=== PATIENT | female | born 1960 | race American Indian/Alaskan Native ===

== ENCOUNTER 2018-11-06 09:17 | Day surgery (SDC) | payer MEDICARE, OTHER ==
[~2018-11-06] VITALS: Ht 167.6 cm; Wt 51.5 kg
[~2018-11-06 09:17] MED LIST: AMOX500 PO; Aldactone100 MG PO; BUPR150ER PO; FURO40 PO; GABA300 PO; HYDACE5 PO; LOSA50 PO; OMEP20ER PO
== END 2018-11-06 12:05 | disposition home or self-care (01) ==
LOC: ORSCSDS 09:17
PROVIDERS: Internal Medicine Gastroenterology
PROC: 0DB68ZX Excision of Stomach, Via Natural or Artificial Opening Endoscopic, Diagnostic (ICD-10-PCS; principal; 2018-11-06 11:00)
PROC: 0DBM8ZX Excision of Descending Colon, Via Natural or Artificial Opening Endoscopic, Diagnostic (ICD-10-PCS; principal; 2018-11-06 11:00)
PROC: 0DBK8ZX Excision of Ascending Colon, Via Natural or Artificial Opening Endoscopic, Diagnostic (ICD-10-PCS; principal; 2018-11-06 11:00)
PROC: 0DB58ZX Excision of Esophagus, Via Natural or Artificial Opening Endoscopic, Diagnostic (ICD-10-PCS; principal; 2018-11-06 11:00)
DX: Z12.11 Encounter for screening for malignant neoplasm of colon (principal); D12.2 Benign neoplasm of ascending colon; D12.4 Benign neoplasm of descending colon; K74.60 Unspecified cirrhosis of liver; B19.20 Unspecified viral hepatitis C without hepatic coma; I85.10 Secondary esophageal varices without bleeding; K29.70 Gastritis, unspecified, without bleeding; B96.81 Helicobacter pylori [H. pylori] as the cause of diseases classified elsewhere; K76.6 Portal hypertension; K31.89 Other diseases of stomach and duodenum; K57.30 Diverticulosis of large intestine without perforation or abscess without bleeding; K64.8 Other hemorrhoids; F17.210 Nicotine dependence, cigarettes, uncomplicated; I10 Essential (primary) hypertension; Z79.899 Other long term (current) drug therapy
CPT/HCPCS: 88305; 88342; J2704; J7120

== ENCOUNTER → 2019-07-09 | Outpatient (CLI) | payer MEDICARE, OTHER | END | disposition home or self-care (01) | LOC: OLS 13:29 → LAB SHORT 13:29 | DX: K74.60 Unspecified cirrhosis of liver (principal) | CPT/HCPCS: 36415; 82105 ==

== ENCOUNTER 2019-11-22 12:46 | Day surgery (SDC) | payer MEDICARE, OTHER ==
[~2019-11-22] VITALS: Ht 167.6 cm; Wt 54.5 kg
[~2019-11-22 12:46] MED LIST changes: +GABA100 PO
[2019-11-22] MEDS ORDERED: CLOP75 PO (17:22)
--- NOTE | 2019-11-22 18:03 | NUR ---
1700 PATIENT RETURNED TO THE RECOVERY ROOM VIA RECLINER CHAIR WITH RIGHT RADIAL ACCESS. TR BAND IN PLACE WITH 11 ML OF AIR IN THE BAND. ACT AT 1700 WAS 272. WILL RECHECK IN AN HOUR. TRAY SERVED AND PATIENT FEEDING SELF. VVS.
--- NOTE | 2019-11-22 18:05 | NUR ---
1730 PATIENT C/O OF TINGLING TO THE LEFT RADIAL AND 2 ML OF AIR REMOVED FROM THE TR BAND AND BLEEDING NOTED. REPLACED 1 ML OF AIR AND BLEEDING STOPPED.
--- NOTE | 2019-11-22 18:06 | NUR ---
1800 PATIENT C/O HEADACHE AND OBTAINED ORDER FOR TYLENOL FROM DR. CHERRY. 600 MG GIVEN PO TO THE PATIENT.
--- NOTE | 2019-11-22 18:08 | NUR ---
1805 ACT CHECKED FROM A VENOUS DRAW FROM THE [facility]. WASTED 5 ML OF BLOOD AND SAMPLE OBTAINED. ACT 379
--- NOTE | 2019-11-22 18:39 | NUR ---
1835 ACT RECHECKED AFTER SAMPLE OBTAINED FROM THE PIV AND RESULTS ARE 147. 2 ML OF AIR RELEASED FROM THE BAND AND NO BLEEDING NOTED.
--- NOTE | 2019-11-22 18:54 | NUR ---
1850 2 ML OF AIR REMOVED FROM THE TR BAND.
--- NOTE | 2019-11-22 19:10 | NUR ---
1910 THE REMAINDER OF AIR REMOVED FROM THE TR BAND. FLAT, NO AIR REMAINS. NO BLEEDING NOTED.
--- NOTE | 2019-11-22 19:10 | NUR ---
1900 3 ML OF AIR REMOVED FROM THE TR BAND, NO BLEEDING NOTED.
--- NOTE | 2019-11-22 19:48 | NUR ---
1950 TR BAND REMOVED AND SITE CLEANED. CLOTH DOT APPLIED TO THE RIGHT RADIAL SITE. ARM BOARD REAPPLIED AND PATIENT INSTRUCTED ON CARE OF FOLLOW UP APPOINTMENT WITH DR. CHERRY IN 4 WEEKS. REVIEWED ALL DISCHARGE INSTRUCTIONS AND NEW SCRIPT FOR PLAVIX.
--- NOTE | 2019-11-22 19:51 | NUR ---
2000 PATIENT UP AND DRESSED AND ALL BELONGINGS GATHERED. REMINDED PATIENT AND SIGNIFICANT OTHER THAT PLAVIX WAS CALLED INTO THE PHARMACY.
--- NOTE | 2019-11-22 19:54 | NUR ---
2010 PATIENT DISCHARGED BY WHEEL CHAIR TO PRIVATE VEHICLE WITH BOYFRIEND DRIVING.
== END 2019-11-22 22:41 | disposition home or self-care (01) ==
LOC: MHTC 12:46
DX: I70.223 Atherosclerosis of native arteries of extremities with rest pain, bilateral legs (principal)
CPT/HCPCS: 37224; 75716; 75774; 76937; 85347; 99152; 99153; A9270; C1725; C1769; C1887; C1894; J1644; J2250; J3010; J7030; Q9967

== ENCOUNTER 2020-01-14 07:49 | Day surgery (SDC) | payer MEDICARE, OTHER ==
[~2020-01-14] VITALS: Ht 165.1 cm; Wt 55.7 kg
[~2020-01-14 07:49] MED LIST changes: +CLOP75 PO
[2020-01-14] MEDS ORDERED: CLOP75 (08:16)
== END 2020-01-14 09:44 | disposition home or self-care (01) ==
LOC: ORSCSDS 07:49
PROVIDERS: Internal Medicine Gastroenterology
PROC: 0DB68ZX Excision of Stomach, Via Natural or Artificial Opening Endoscopic, Diagnostic (ICD-10-PCS; principal; 2020-01-14 09:15)
DX: K74.60 Unspecified cirrhosis of liver (principal); Z13.810 Encounter for screening for upper gastrointestinal disorder; I85.00 Esophageal varices without bleeding; D37.1 Neoplasm of uncertain behavior of stomach; K44.9 Diaphragmatic hernia without obstruction or gangrene; K76.6 Portal hypertension; K31.89 Other diseases of stomach and duodenum; R00.0 Tachycardia, unspecified; Z86.19 Personal history of other infectious and parasitic diseases; I73.9 Peripheral vascular disease, unspecified; I10 Essential (primary) hypertension; E78.5 Hyperlipidemia, unspecified; F41.9 Anxiety disorder, unspecified; F17.210 Nicotine dependence, cigarettes, uncomplicated; Z79.899 Other long term (current) drug therapy
CPT/HCPCS: 88305; 88342; J2704; J7120

== ENCOUNTER 2020-04-02 08:01 | Day surgery (SDC) | payer MEDICARE, OTHER ==
[~2020-04-02 08:01] MED LIST changes: +CLOP75
== END 2020-04-02 22:37 | disposition home or self-care (01) ==
LOC: MHTC 08:01
DX: I70.213 Atherosclerosis of native arteries of extremities with intermittent claudication, bilateral legs (principal)

== ENCOUNTER 2020-07-09 11:57 | Day surgery (SDC) | payer MEDICARE, OTHER ==
[~2020-07-09] VITALS: Ht 167.6 cm; Wt 54.5 kg
[~2020-07-09 11:57] MED LIST changes: +BUPROPION XL150 M1 PO; +HYDR1TAB94 PO
--- NOTE | 2020-07-09 15:36 | NUR ---
FOLLOWED PT BACK TO RECOVERY ROOM.R PT SITE STILL BLEEDING AFTER 35 MINUTES MANUAL PRESSURE. PRESSURE DRESSING APPLIED, WILL CONTINUE TO MONITOR.
[2020-07-09] MEDS ORDERED: XARELTO2.5 MG PO (15:47)
--- NOTE | 2020-07-09 16:05 | NUR ---
R PEDAL SITE STILL BLEEDING, NEW PRESSURE DRESSING APPLIED. ACT DRAWN PER IV SITE.
--- NOTE | 2020-07-09 17:08 | NUR ---
PRESSURE DRESSING REMOVED TO ASSESS THE PT SITE. GIOVANNI DRESSING INTACT WITH SPOT OF RED BLOOD UNDER THE DRESSING, HOWEVER THERE IS NO ACTIVE BLEEDING OBSERVED.
--- NOTE | 2020-07-09 17:44 | NUR ---
DINNER TRAY SERVED AND SET UP FOR PATIENT. PATIENT FEEDING SELF. VVS. OFF MONITOR. NO PAIN NOTED. CALL LIGHT IN REACH.
--- NOTE | 2020-07-09 17:49 | NUR ---
PATIENT UP TO BATHROOM WITH STAND BY ASSIST. RIGHT DRESSING SITE UNCHANGED. NO BLEEDING OR SWELLING. DRESSED BY SELF. IV SITE DCED WITH CATHETER INTACT.
--- NOTE | 2020-07-09 18:01 | NUR ---
PATIENT DISCHARGED HOME, A&O, DRESSING DRY AND INTACT. IV SITE DCED WITH CATHETER INTACT. TRANSFERRED TO RIDE HOME VIA WHEELCHAIR. SIGNIFICANT OTHER DRIVING.
== END 2020-07-09 22:37 | disposition home or self-care (01) ==
LOC: MHTC 11:57
DX: I70.213 Atherosclerosis of native arteries of extremities with intermittent claudication, bilateral legs (principal); I10 Essential (primary) hypertension; E78.5 Hyperlipidemia, unspecified; M19.90 Unspecified osteoarthritis, unspecified site; F41.9 Anxiety disorder, unspecified; B19.20 Unspecified viral hepatitis C without hepatic coma; M41.9 Scoliosis, unspecified; Z79.01 Long term (current) use of anticoagulants; Z79.02 Long term (current) use of antithrombotics/antiplatelets; Z79.899 Other long term (current) drug therapy
CPT/HCPCS: 37224; 37228; 37232; 75710; 75716; 75774; 76937; 85347; 99152; 99153; C1725; C1757; C1769; C1887; C1894; C2623; C9764; J1644; J2250; J3010; J7030; J7040; J7050; Q9967

== ENCOUNTER 2020-10-15 10:36 | Day surgery (SDC) | payer MEDICARE, OTHER ==
[~2020-10-15] VITALS: Ht 165.1 cm; Wt 58.1 kg
[~2020-10-15 10:36] MED LIST changes: +CO Q10100 MG PO; +PRAVASTATIN SOD10 MG PO; +PREG75 PO; +XARELTO2.5 MG PO
--- NOTE | 2020-10-15 11:22 | NUR ---
5894 PATIENT READY, GROINS PREP COMPLETE, PIV TO THE R AC AND NPO. PATIENT TO THE CHANNELER OUTSOLE FOR PROCEDURE.
--- NOTE | 2020-10-15 11:34 | NUR ---
PATIENT UP TO THE RESTROOM VOIDED, BACK TO BEDSIDE. REVIEWED ALL DISCHARGE INSTRUCTIONS WITH THE PATIENT, ALL QUESTIONS ANSWERED AND PATIENT SIGNED ALL PAPERS. FOLLOW UP APPOINTMENT NOTED AND WRITTEN DOWN FOR THE PATIENT. PIV REMOVED FROM THE RIGHT ARM AND PRESSURE DRESSING APPLIED.
--- NOTE | 2020-10-15 13:27 | NUR ---
PATIENT RETURNED FROM THE CATHLAB. ACCESS SHEATH TO THE RIGHT PT AND INFUSING CATHETER LEFT IN PLACE. SHEATH SITE TO THE LEFT FEMORAL 6 FR SHEATH WITH INFUSION CATHETER LEFT IN PLACE. PLACE IS TO INFUSE TPA AND HEPARIN RESPECTIVELY TO THE INFUSION CATHETERS IN PLACE. PATIENT IS SUPINE AND IN REVERSE TRENDELENBERG. PLACED ON THE MONITOR AND CALL LIGHT IN REACH. SHE IS AWAY AND CALLED TO LET HER S.O. KNOW THE PLAN TO STAY OVERNIGHT. CALL LIGHT IN REACH.
--- NOTE | 2020-10-15 14:16 | NUR ---
LUNCH TRAY SERVED. PATIENT FEEDING SELF. REMAINS IN REVERSE TRENDELENBERG FEET FLOATED ON A PILLOW. SUPINE CALL LIGHT IN REACH AND MONITOR IN PLACE.
--- NOTE | 2020-10-15 14:47 | NUR ---
PATIENT PLACE ON THE BEDPAN TO VOID.
--- NOTE | 2020-10-15 14:47 | NUR ---
1435 TPA GTT TO THE RIGHT PEDAL SHEATH AT 1 MG/HR ORDERED. 1440 HEPARIN GTT TO CATHETER IN THE THE LEFT FEMORAL SHEATH AT 300 UNITS/HR OR 6 ML/HR
--- NOTE | 2020-10-15 14:55 | NUR ---
1448 PATIENT STATES THAT THE RIGHT LEG IS NUMB AND PAINFUL. TINGLING AND STIFF. PATIENT MUST KEEP RIGHT LEG STRAIGHT DUE TO CATHETERS IN THE ARTERIAL VESSEL FROM THE LEFT GROIN TO THE RIGHT FOOT. GIVEN NORCO ORALLY
--- NOTE | 2020-10-15 15:08 | NUR ---
ICU BED OBTAINED. REPORT CALLED.
--- NOTE | 2020-10-15 15:30 | NUR ---
Patient arrived from semiconductor lab technician, awake and alert an oriented. Jamar has NS free drip into 20ga IV in RAC. She has sheat at ppost tibial site with TPA at 1 mg/hr, conner also has left groin site WNL's and is infusing heparin at 6ml/hr. Hr in the 60's and systolic 120-140's. She is supine and states 9/10 pain. She will return to cvath lab 10/16. She states unable to move foot or toes and pedal pulse 2+ and palpable left pedal pulse.
--- NOTE | 2020-10-15 17:30 | NUR ---
She has been medicated twice as [place] ceci not work and 1mg dilaudid brought down to a 5/10 and bearable. Dinner came and reverese trendelenberg to help her eat and she became nauseated and vomited small amount of bile liquids and the felt better and started to eat a little dinner. VSS, no changes in pulses, sites or neuro's.
--- NOTE | 2020-10-15 18:30 | NUR ---
Patient is currently sleeping, 2+ pulses bilaterally to pedal area, still not anble to wiggle toes or move left foot. VSS , See EMR ! mg/hr TPA infusing to right tibial and 6ml of heparin to lreft groin and free gtt of NS.
[2020-10-15 20:27] LABS: Source, Urine Catheter
[2020-10-15 20:30] LABS: Bilirubin, Urine Neg (Neg); Blood, Urine Neg (Neg); Glucose Qualitative, Urine Neg (Neg); Ketones, Urine 2+ (Neg); Leukocyte Esterase, Urine Neg (Neg); Nitrite, Urine Neg (Neg); Protein, Urine Neg (Neg); Specific Gravity, Urine 1.015 (1.003-1.022); Urobilinogen, Urine NORM (Normal)
[2020-10-15 20:31] LABS: Appearance, Urine Clear (Clear); Color, Urine Yellow (P-Yellow)
--- NOTE | 2020-10-15 21:00 | NUR ---
ASSUMPTION OF CARE PT ALERT AND ORIENTED IN BED, DENIES PAIN AT BEGINNING OF SHIFT, REPORTS NUMBNESS/TINGLING TO BLE WHICH PT STS IS NORMAL. R P.T. SHEATH WNL, L GROIN SITE WITH HEMATOMA AND BRUSING, ASSESSED WITH DAYSHIFT RN ABHIJEET STERN, STS SITE IS UNCHANGED FROM INITIAL ASSESSMENT, HEMATOMA AND BRUSING OUTLINED WITH PERMANENT MARKER. BILAT PEDAL PULSES PALPABLE, R SIDE VERY FAINT AND UNABLE TO ASSESS P.T. R/T SHEATH SITE. L SIDE PEDAL PULSES STRONG. O2 SATURATIONS> 90% ON RA, MONITOR SHOWS SINUS RHYTHM WITH HR 70'S, BP STABLE. HEPARIN GTT INFUSING @ 6ml/hr PER L GROIN SHEATH, TPA @ 1mg/hr PER R P.T SHEATH. PT ASSISTED TO BEDPAN PER REQUEST, UNABLE TO VOID, BLADDER SCAN SHOWED> 564ml. AT 1939, L GROIN SITE RE-ASSESSED, HEMATOMA NOTED TO BE INCREASED APPROX 1cm. CALL PLACED TO DR CHERRY REGARDING BLADDER SCAN AND HEMATOMA. ORDER TO HOLD MANUAL PRESSURE 5-10 MINUTES IF SITE REMAINS UNSTABLE AFTER MANUAL PRESSURE APPLY FEMSTOP, AND LOPEZ CATHETER FOR URINARY RETENTION ORDERED. MANUAL PRESSURE HELD FOR APPROX 7 MINUTES, HEMATOMA CONTINUED TO INCREASE, FEMSTOP APPLIED @ 2044. PT DENIES TENDERNESS AT GROIN SITE, L PEDAL PULSES REMAIN PALPABLE.
--- NOTE | 2020-10-16 03:00 | NUR ---
RE-BLEED TO PTS ROOM AND NOTICED BLEEDING THROUGH GOWN FROM L GROIN SITE. FEM STOP REAPPLIED, CALL PLACED TO DR CHERRY TO UPDATE ON PTS STATUS. TPA CURRENT INFUSING RATE 0.5mg/hr. NO NEW ORDERS AT THIS TIME.
--- NOTE | 2020-10-16 03:30 | NUR ---
FEM STOP REMAINS IN PLACE, NO ADDITIONAL BLEEDING NOTED. PT DENIES ANY PAIN/TENDERNESS AT L GROIN. L PEDAL PULSES PALPABLE.
--- NOTE | 2020-10-16 04:16 | NUR ---
PT SAMPLE TESTER GRINDER LIGHT TO NOTIFY NURSE OF NUMBNESS TO R FOOT. PT HAS SENSATION THROUGH CALF AND R HEEL DISTAL EXTREMETY IS NUMB. UNABLE TO PALPATE PULSE. PULSE PRESENT PER DOPPLER, EXTREMELY FAINT AND MONOPHASIC. PRESSURE ON FEM STOP DECREASED, PLAN TO RE-ASSESS @ 0430.
--- NOTE | 2020-10-16 04:50 | NUR ---
R PEDAL PULSE IMPROVED BUT ONLY PRESENT BY DOPPLER, CONTINUES TO BE MONOPHASIC. OOZING NOTED AT L GROIN SITE. FEM STOP RE-ADJUSTED AND PRESSURE INCREASED. UPDATED DR CHERRY ON PTS STATUS, ORDER TO DECREASE TPA TO 0.25mg/hr.
--- NOTE | 2020-10-16 05:38 | NUR ---
CALL PLACED TO DR CHERRY REGARDING PTS VITALS SIGNS. HR SUSTAINED 110-120 (INCREASE FROM 60'S-70'S), SBP 90'S (DECREASE FROM 130'S-150'S), PT DENIES DIZZINESS, SOB, STS SHE IS JUST "WIPED OUT". NEW ORDER FOR STAT H&H AND REPORT RESULTS BACK TO DR CHERRY.
[2020-10-16 05:48] LABS: Hematocrit 37.2 % (33.0-51.0); Hemoglobin 12.4 g/dL (11.5-16.0)
--- NOTE | 2020-10-16 06:47 | NUR ---
SHIFT SUMMARY PT AWAKE FOR MAJORITY OF SHIFT, SEE PREVIOUS NOTES FOR ISSUES WITH L GROIN SITE. FEMSTOP REMAINS IN PLACE TO L GROIN, L PEDAL PULSES PALPABLE, R D.P. PER DOPPLER ONLY. PT REPORTS PAIN IN R LEG BUT NUMBNESS IN HER R FOOT. MONITOR SHOWS SINUS TACH, HR NOW SUSTAINED 120'S-130'S, SBP 100-120 WITH MAPS 70'S-80'S. HEPARIN GTT INCREASED TO 500u/hr OR 10ml/hr (VERIFIED WITH DENNIS RN), TPA ON STAND BY. LOPEZ PLACED THIS SHIFT, GOOD URINE OUTPUT.
--- NOTE | 2020-10-16 07:51 | NUR ---
[place] of Care: Care assumed at 0700hr. Patient alert and oriented x4, lying flat in bed. Calm and cooperative with staff, lying flat r/t lt groin access/infusion catheter in place, r/t rt arterial thrombus. Heparin 25,000u/500ml gtt infusing through lt groin catheter at 10ml/hr per Dr. Ray. TPA gtt stopped (per Dr. Ray) last NOC approx 0600hr, was infusing throughout rt posterior tibial infusion catheter. Peripheral IV, x1 patent and intact. Hernandez cath patent and intact, draining clear dark yellow urine. Lt groin site has large hematoma that extends distal, lateral, and medial from site. Also large amount of blood drainage from site, underneath dressing. Fem-stop in place to lt groin, with no pressure to inflation bulb. Site does not appear to be actively bleeding at this time, origins marked by NOC RN and no change noted per NOC RN during bedside report. Palpable pulses to lt foot, but absent pulse to rt dorsal pedal, unable to doppler. Patient's BP shows systolic in low 100's, HR shows sinus tach in the 130's. This RN placed call to Dr. Ray this morning to discuss groin site, pulses, and plan of care. Ensured Dr. Ray was aware of the extend of patient's hematoma and discussed current VS. Received order for NS at 150ml/hr and plan to come assess patient early this morning. Will continue to closely monitor and call Dr. Ray with any changes.
--- NOTE | 2020-10-16 12:10 | NUR ---
Re-assessment: No significant changes since morning assessment. lt groin site remains stable, no changes to peripheral pulses. Call placed to warehouse general laborer at approx 1100hr, informed patient would be taken back to warehouse general laborer in 1-4hrs. Patient medication for leg pain with good effect. Will continue to closely monitor.
[2020-10-16 14:39] LABS: BASOPHILS ABSOLUTE AUTO 0.05 K/mm3 (0.00-0.23); BASOPHILS PERCENT AUTO 1 % (0-2); EOSINOPHILS ABSOLUTE AUTO 0.02 K/mm3 (0.00-0.68); EOSINOPHILS PERCENT AUTO 0 % (0-6); Hematocrit 26.3 % (33.0-51.0); Hemoglobin 8.6 g/dL (11.5-16.0); IMMATURE GRAN ABSOLUTE AUTO 0.32 K/mm3 (0.00-0.10); IMMATURE GRAN PERCENT AUTO 4 % (0-1); LYMPHOCYTES PERCENT AUTO 12 % (21-46); MONOCYTES ABSOLUTE AUTO 0.63 K/mm3 (0.16-1.47); MONOCYTES PERCENT AUTO 7 % (4-13); Mean Corpuscular HGB Conc 32.7 g/dL (31.5-36.5); Mean Corpuscular Volume 95 fL (80-100); Mean Platelet Volume 10.8 fL (9.1-12.4); NEUTROPHILS ABSOLUTE AUTO 6.46 K/mm3 (1.96-9.15); NEUTROPHILS PERCENT AUTO 76 % (41-73); NRBC ABSOLUTE 0.08 K/mm3 (0.00-0.02); NRBC Auto 0.9 /100 WBC (0.0-0.2); Platelet Count 112 K/mm3 (150-400); RDW Coefficient Variation 13.2 % (11.7-14.2); RDW Standard Deviation 45.5 fL (35.1-46.3); Red Blood Cell Count 2.77 M/mm3 (3.80-5.20); White Blood Cell Count 8.48 K/mm3 (4.00-11.30)
[2020-10-16 15:30] LABS: Alanine Aminotransfer (ALT/SGP 66 U/L (12-78); Albumin, Blood 2.1 g/dL (3.4-5.0); Albumin/Globulin Ratio 1.2 (0.8-1.8); Alk Phos 65 U/L (50-136); Anion Gap 8 mmol/L (6-16); Aspartate Aminotrans (AST/SGOT 35 U/L (12-37); Bilirubin, Total 0.3 mg/dL (0.1-1.0); Blood Urea Nitrogen 25 mg/dL (8-24); Bun/Creatinine Ratio 27.5 (12.0-20.0); CO2, Blood 19 mmol/L (21-32); Calcium, Blood 7.1 mg/dL (8.5-10.1); Chloride, Blood 115 mmol/L (98-108); Creatinine, Blood 0.91 mg/dL (0.40-1.00); Globulin, Blood 1.8 g/dL (2.2-4.0); Glomerular Filtration Rate >60 (60-); Glucose, Blood 168 mg/dL (70-99); Potassium, Blood 4.9 mmol/L (3.5-5.5); Sodium, Blood 142 mmol/L (136-145); Total Protein, Blood 3.9 g/dL (6.4-8.2)
[2020-10-16 16:46] LABS: Hematocrit 23.9 % (33.0-51.0); Hemoglobin 7.8 g/dL (11.5-16.0)
--- NOTE | 2020-10-16 17:06 | NUR ---
Return from livestock laborer: Patient transferred to quality assurance qa lab technician at approx 1400hr, for continued procedure with Dr. Ray. 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 This RN then reported to quality assurance qa lab technician, discussion with Dr. Ray r/t interventions performed to lt groin (pressure held and fibrin injected). HC staff then found that patient now had absent pulses to lt foot and weak lt femoral pulse. Then received plan per Dr. Ray to transfer patient to [place] for vascular surgery. Patient returned fro quality assurance qa lab technician to [facility] at 1650hr. Patient remains a/o x4. VSS, but BP elevated to 170's, HR shows sinus rhythm in the low 100's-120. Pulses remain absent to both feet. Lt foot cool and pale, rt foot pink and warm with cap refill wnl. lt groin site continues to show large hematoma, but appears stable, no s/s of active bleeding. now at bedside, all questions answered to his satisfaction. Awaiting to hear from Dr. Ray r/t accepting physician at [place]. Medicated for rt leg pain with good effect. 1st unit of PRBC's infusing at this time, no s/s of infusion reaction. Plan/orders tin infuse x1 additional unit. Will continue to monitor.
--- NOTE | 2020-10-16 18:48 | NUR ---
Transfer to [place]: Bed assignment received, and [facility] contacted for air-transport to [facility], 1730hr. Report called to Birgit GALDAMEZ in the ICU at [facility], all questions answered to her satisfaction. [facility] staff arrived to room at approx 1755hr. Bedside report given and patient transferred to [facility] without difficulty, transferred out of unit at approx 1815hr. No changes to lt groin site (visualized/palpated) with [facility] staff. Also no changes to lt foot, remains cool, pale, and absent of pulses. VSS remained stable. 1st unit of PRBC's (started in laborer pipeline) finished at 1745hr, 2nd until started approx 1800hr, and infusing on transport.
== END 2020-10-16 18:25 | disposition short-term general hospital (02) ==
LOC: MHTC 10:36 → ICUW 10:36 → MHTC 10:38 → ICUW 15:22 → MHTC 10-16 18:25
PROVIDERS: Radiology Diagnostic Radiology
DX: I70.213 Atherosclerosis of native arteries of extremities with intermittent claudication, bilateral legs (principal); I10 Essential (primary) hypertension; F17.210 Nicotine dependence, cigarettes, uncomplicated; E78.5 Hyperlipidemia, unspecified; B19.20 Unspecified viral hepatitis C without hepatic coma; T82.868A Thrombosis due to vascular prosthetic devices, implants and grafts, initial encounter; Z20.822 Contact with and (suspected) exposure to COVID-19
CPT/HCPCS: 36002; 36415; 36430; 37184; 37186; 37211; 37214; 37224; 37226; 51702; 75625; 75710; 75716; 75774; 76937; 76998; 80053; 81003; 85014; 85018; 85025; 85384; 86850; 86900; 86901; 86923; 99152; 99153; A9270; C1725; C1751; C1757; C1760; C1769; C1876; C1887; C1894; J0780; J1170; J1644; J2250; J2405; J2997; J3010; J7030; J7040; J7050; P9016; Q9967